=== PATIENT | male | born 2000 | race African-American/Black ===

== ENCOUNTER 2024-06-30 15:36 | Emergency (ER) | payer OTHER ==
--- NOTE | 2024-06-30 16:14 | RAD REPORT ---
EXAM: CT brain without contrast HISTORY: ams COMPARISON: None TECHNIQUE: Multiple contiguous axial images were obtained and a CT of the brain without contrast. Sag ittal and coronal reformats were performed. One or more of the following dose reduction techniques were used: Automated exposure control, adjust ment of the mA and/or kV according to patient size, and/or iterative reconstruction. FINDINGS: No evidence of hydrocephalus, intracranial hemorrhage, or extra-axial fluid collection. The brain is normal in morphology. No evidence of midline shift or areas of brain edema. The calvarium is intact. The visualized paranasal sinuses and mastoid air cells are essentially clear . IMPRESSION: No evidence of acute intracranial abnormality.
--- NOTE | 2024-06-30 16:15 | RAD REPORT ---
EXAMINATION: ONE VIEW CHEST XR CLINICAL INDICATION: confusion, hiv TECHNIQUE: Frontal chest projection is submitted. Examination is limited by patient positioning and t echnique. COMPARISON: No prior exam. FINDINGS: The lungs are well inflated and clear. The heart is normal in size. No displaced fractures identified . IMPRESSION: No acute intrathoracic abnormalities.
[2024-06-30 16:39] LABS: PTT, Activated Partial Thromb 31.5 SECONDS (24.3-36.9); Protime INR 1.24
[2024-06-30 16:44] LABS: Absolute Basophils 0.1 K/uL (0-0.5); Absolute Lymphocytes (CBC) 2.2 K/uL (0.7-4.9); Absolute Monocytes 0.7 K/uL (0.1-1.3); Absolute Neutrophil 6.3 K/uL (1.8-8.0); Basophils % 0.6 % (0-1.3); Eosinophils % 0.5 % (0-4.4); Hematocrit 42.1 % (39.6-49.0); Hemoglobin 14.1 g/dL (13.6-17.9); Lymphocytes % 23.4 % (15.3-44.8); MCH 28.4 pg (27.0-35.0); MCHC 33.5 g/dL (32.0-36.0); MCV 84.8 fL (80-100); MPV 9.4 fL (7.6-11.3); Monocytes % 8.1 % (3.3-12.3); Neutrophils % 67.4 % (41.7-73.7); Nucleated Red Blood Cells % 0.1 % (0-0); Platelets 173 thou/uL (152-406); RBC Red Blood Cell Count 4.96 M/uL (4.33-5.43); Red Cell Distribution Width 14.9 % (12.1-15.2)
[2024-06-30 16:48] LABS: Albumin 4.3 g/dL (3.4-5.0); Anion Gap 13.6 mEq/L (5.0-15.0); Bilirubin Total 0.8 mg/dL (0.2-1.0); Globulin 4.4 g/dL (2.3-3.5); Potassium 3.6 mEq/L (3.5-5.1); Protein, Total 8.7 g/dL (6.4-8.2)
[2024-06-30 19:02] LABS: Specific Gravity > 1.030 (1.005-1.030); Sqamous Epithelial None Seen /HPF (None Seen); Urine Bacteria <20 /HPF (<20); Urine Bilirubin NEGATIVE (Negative); Urine Blood Negative (Negative); Urine Clarity Clear (Clear); Urine Color Yellow (Yellow); Urine Crystals Unidentified Few /HPF (None Seen); Urine Culture Reflex Order NOT NEEDED; Urine Glucose NEGATIVE (Negative); Urine Ketones 4+ (Over) (Negative); Urine Microscopic Reflex YN ORDER UMIC; Urine Mucus 2+ /HPF (None Seen); Urine Nitrite NEGATIVE (Negative); Urine Protein 1+ (Negative); Urine RBC <5 /HPF (None Seen); Urine Urobilinogen 1+ (Normal); Urine WBC <5 /HPF (<5)
[2024-06-30 19:07] LABS: Barbiturates NEGATIVE (NEGATIVE); Benzodiazepines NEGATIVE (NEGATIVE); Cocaine NEGATIVE (NEGATIVE); METHAMPHETAM NEGATIVE (NEGATIVE); Methadone NEGATIVE (NEGATIVE); Opiates NEGATIVE (NEGATIVE); Phencyclidine NEGATIVE (NEGATIVE); THC Cannibis NEGATIVE (NEGATIVE)
--- NOTE | 2024-06-30 19:11 | ER ---
Nurse's Notes [facility] Name: Kael Bhatt Age: 24 yrs Sex: Male : 2000 Arrival Date: 06/30/2024 Time: 15:36 Bed 8 Private MD: Diagnosis: Altered mental status, resolved Presentation: 06/30 15:40 Chief complaint: EMS states: AMS AT [facility], NON-COMPLIANT WITH HIV MEDS. Coronavirus bp screen: At this time, the client does not indicate any symptoms associated with coronavirus-19. Ebola Screen: No symptoms or risks identified at this time. Initial Sepsis Screen: Does the patient meet any 2 criteria? No. Patient's initial sepsis screen is negative. Does the patient have a suspected source of infection? No. Patient's initial sepsis screen is negative. Risk Assessment: Do you want to hurt yourself or someone else? Patient reports no desire to harm self or others. Onset of symptoms is unknown. Care prior to arrival: None. 15:40 Method Of Arrival: EMS: [facility] bp 15:40 Acuity: LEROY 3 bp Triage Assessment: 15:44 General: Appears unkempt, Behavior is uncooperative. Pain: Unable to use pain scale. bp Does not appear to understand pain scale. EENT: No deficits noted. Neuro: Level of Consciousness is awake, confused, Oriented to none. Cardiovascular: Rhythm is sinus rhythm. Respiratory: No deficits noted. GI: No signs and/or symptoms were reported involving the gastrointestinal system. : No signs and/or symptoms were reported regarding the genitourinary system. Derm: No deficits noted. Musculoskeletal: No deficits noted. Historical: - Allergies: 15:44 Unable to obtain; bp - Immunization history:: Adult Immunizations up to date. - Infectious Disease History:: Denies. - Social history:: Smoking status: unknown. - Family history:: not pertinent. Screenin:[facility] ED Fall Risk Assessment (Adult) History of falling in the last 3 months, ld1 including since admission No falls in past 3 months (0 pts) Confusion or Disorientation No (0 pts) Intoxicated or Sedated No (0 pts) Impaired Gait No (0 pts) Mobility Assist Device Used No (0 pt) Altered Elimination No (0 pt) Score/Fall Risk Level 0 - 2 = Low Risk Oriented to surroundings, Hourly rounding (assess needs \T\ fall precautionary measures) done. Abuse screen: Denies threats or abuse. Denies injuries from another. Nutritional screening: No deficits noted. Tuberculosis screening: No symptoms or risk factors identified. Assessment: 18:51 General: Appears in no apparent distress. comfortable, Behavior is appropriate for age, ld1 fussy. Pain: Denies pain. Neuro: Level of Consciousness is awake, alert, obeys commands, Oriented to person, place, time, situation. Cardiovascular: Capillary refill < 3 seconds Patient's skin is warm and dry. Respiratory: Airway is patent Respiratory effort is even, unlabored. GI: Abdomen is flat, non-distended. : No signs and/or symptoms were reported regarding the genitourinary system. EENT: No signs and/or symptoms were reported regarding the EENT system. Derm: No signs and/or symptoms reported regarding the dermatologic system. Musculoskeletal: No signs and/or symptoms reported regarding the musculoskeletal system. 19:47 Reassessment: Patient appears in no apparent distress at this time. Patient and/or bm8 family updated on plan of care and expected duration. Pain level reassessed. Patient is alert, oriented x 3, equal unlabored respirations, skin warm/dry/pink. Patient denies pain at this time. Patient states feeling better. Patient states symptoms have improved. General: Appears in no apparent distress. comfortable, Behavior is calm, cooperative, appropriate for age. Pain: Denies pain. Neuro: No deficits noted. Level of Consciousness is awake, alert, obeys commands, Oriented to person, place, time, situation, Appropriate for age. Cardiovascular: Denies chest pain, lightheadedness, shortness of breath, Capillary refill < 3 seconds in bilateral fingers Patient's skin is warm and dry. Respiratory: Airway is patent Respiratory effort is even, unlabored, Respiratory pattern is regular, symmetrical. GI: No signs and/or symptoms were reported involving the gastrointestinal system. : No signs and/or symptoms were reported regarding the genitourinary system. EENT: No signs and/or symptoms were reported regarding the EENT system. Derm: No signs and/or symptoms reported regarding the dermatologic system. Musculoskeletal: No signs and/or symptoms reported regarding the musculoskeletal system. 19:49 Reassessment: pt awaiting transportation for departure back to [facility]. bm8 Vital Signs: 15:40 BP 144 / 100; Pulse 88; Resp 15; Temp 98; Pulse Ox 98% ; bp 17:00 BP 137 / 87; Pulse 91; Resp 15; Pulse Ox 100% ; bp 18:52 BP 144 / 91; Pulse 83; Resp 15; Pulse Ox 99% ; bp 19:47 BP 108 / 68; Pulse 76; Resp 16; Temp 99.4; Pulse Ox 98% ; Pain 0/10; bm8 19:47 Pain Scale: Adult bm8 [place] Coma Score: 19:47 Eye Response: spontaneous(4). Motor Response: obeys commands(6). Verbal Response: bm8 oriented(5). Total: 15. NIH Stroke Scale Scores: 15:44 NIHSS Score: 4 bp ED Course: 15:37 Patient arrived in ED. bp 15:38 Edinson Perez MD is Attending Physician. rt 15:44 Triage completed. bp 15:44 Arm band placed on. bp 15:47 Joce Ro, RN is Primary Nurse. bp 16:05 CT Head Brain wo Cont In Process Unspecified. EDMS 16:07 Chest Single View XRAY In Process Unspecified. EDMS 16:30 Initial lab(s) drawn, by me, sent to lab. Inserted saline lock: 22 gauge in right bp forearm, using aseptic technique. Blood collected. Flushed with 10 mL NS. 18:49 Urine collected: clean catch specimen, hussein colored. bp 18:51 Patient has correct armband on for positive identification. Placed in gown. Bed in low ld1 position. Call light in reach. Side rails up X2. Pulse ox on. NIBP on. Door closed. Noise minimized. Warm blanket given. 18:51 No provider procedures requiring assistance completed. ld1 19:11 4 called [facility] Managed Care for transfer talked to Lauren 1911 no beds at [facility]. sp 19:47 Provided Education on: post er care. bm8 19:47 IV discontinued, intact, bleeding controlled, No redness/swelling at site. Pressure bm8 dressing applied. Administered Medications: No medications were administered Medication: 18:51 VIS not applicable for this client. ld1 Outcome: 19:10 ER care complete, transfer ordered by MD. rt 19:34 Discharge ordered by MD. rt 19:47 Discharged to home ambulatory, with long-term guards bm8 19:47 Condition: stable 19:47 Discharge instructions given to patient, police, Instructed on discharge instructions, follow up and referral plans. Demonstrated understanding of instructions, follow-up care, 20:09 Patient left the ED. bm8 NIH Stroke Scale - NIH Stroke Score Date: 06/30/2024 Time: 15:44 Total Score = 4 10. Dysarthria (speech clarity - read or repeat words) - 0(Normal) 11. Extinction and Inattention (visual/tactile/auditory/spatial/personal) - 0(No abnormality) 1a. Level of Consciousness (LOC) - 0(Alert) 1b. Level of Consciousness (LOC) (Month \T\ Age) - 2(Neither) 1c. LOC Commands (Open \T\ Closes Eyes/Product Safety Technician) - 2(Neither) 2. Best Gaze (Lateral Gaze Paresis) - 0(Normal) 3. Visual Field Loss - 0(No visual loss) 4. Facial Palsy - 0(Normal) 5a. Left Arm: Motor (10-second hold) - 0(No drift) 5b. Right Arm: Motor (10-second hold) - 0(No drift) 6a. Left Leg: Motor (5-second hold - always test supine) - 0(No drift) 6b. Right Leg: Motor (5-second hold - always test supine) - 0(No drift) 7. Limb Ataxia (finger/nose \T\ heel/willams - test with eyes open) - 0(Absent) 8. Sensory Loss (pinprick arms/legs/face) - 0(Normal) 9. Best Language: Aphasia (description/naming/reading) - 0(No aphasia) Initials: bp Signatures: Dispatcher [employer] EDMS Cheyenne Fan Brian RN RN bp Kimberly Sage, RN RN ld1 Edinson Perez MD MD rt Alexis Espinoza, RN RN bm8 Corrections: (The following items were deleted from the chart) 15:44 15:44 Allergies: No Known Allergies; bp bp
--- NOTE | 2024-06-30 19:11 | EDPHYS ---
Physician Documentation [facility] Name: Kael Bhatt Age: 24 yrs Sex: Male : 2000 Arrival Date: 06/30/2024 Time: 15:36 Bed 8 Private MD: ED Physician Edinson Perez HPI: 06/30 16:23 This 24 yrs old Black Male presents to ER via EMS with complaints of Altered Mental rt Status. 16:23 Patient presents to the ED with altered mental status. The patient presents from rt alf, has a history of HIV, reportedly not compliant with his medications. No further history could be obtained due to altered mental status. Symptoms are moderate severity, no other aggravating or alleviating factors.. Historical: - Allergies: 15:44 Unable to obtain; bp - Immunization history:: Adult Immunizations up to date. - Infectious Disease History:: Denies. - Social history:: Smoking status: unknown. - Family history:: not pertinent. ROS: 16:23 Unable to obtain ROS due to altered mental status, rt Exam: 16:23 Head/Face: Normocephalic, atraumatic. Chest/axilla: Normal chest wall appearance and rt motion. Nontender with no deformity. No lesions are appreciated. Cardiovascular: Regular rate and rhythm with a normal S1 and S2. No gallops, murmurs, or rubs. Normal PMI, no JVD. No pulse deficits. Respiratory: Lungs have equal breath sounds bilaterally, clear to auscultation and percussion. No rales, rhonchi or wheezes noted. No increased work of breathing, no retractions or nasal flaring. Abdomen/GI: Soft, non-tender, with normal bowel sounds. No distension or tympany. No guarding or rebound. No evidence of tenderness throughout. Skin: Warm, dry with normal turgor. Normal color with no rashes, no lesions, and no evidence of cellulitis. MS/ Extremity: Pulses equal, no cyanosis. Neurovascular intact. Full, normal range of motion. 16:23 Constitutional: The patient appears Awake, confused 16:23 Neuro: Confused, responds inappropriately to questions, strength and sensation intact in upper and lower extremities, 16:32 ECG was reviewed by the Attending Physician. rt Vital Signs: 15:40 BP 144 / 100; Pulse 88; Resp 15; Temp 98; Pulse Ox 98% ; bp 17:00 BP 137 / 87; Pulse 91; Resp 15; Pulse Ox 100% ; bp 18:52 BP 144 / 91; Pulse 83; Resp 15; Pulse Ox 99% ; bp 19:47 BP 108 / 68; Pulse 76; Resp 16; Temp 99.4; Pulse Ox 98% ; Pain 0/10; bm8 19:47 Pain Scale: Adult bm8 NIH Stroke Scale Scores: 15:44 NIHSS Score: 4 bp [place] Coma Score: 19:47 Eye Response: spontaneous(4). Motor Response: obeys commands(6). Verbal Response: bm8 oriented(5). Total: 15. MDM: 15:38 Medical Screening Exam initiated rt 20:11 Differential Diagnosis: drug injestion, psychosis, infection, intracranial hemorrhage. rt Data reviewed: vital signs, nurses notes, lab test result(s), EKG, radiologic studies. Consideration of Admission/Observation Escalation of care including admission/observation considered. Patient had essentially negative workup. He is afebrile. The patient suddenly began to speak, states that he has no physical complaints, states that he wishes to go back to the [facility] and not be admitted to the hospital. At this time, I see no reasons for patient to be admitted, strict return precautions were discussed.. Independent interpretation of the following test(s) in the Emergency Department CT Scan: My interpretation is No intracranial hemorrhage seen on interpretation of CT scan images. Test considered but Not performed: Labs: Patient is afebrile, not lymphopenic, no significant lab abnormalities, I have a low suspicion for meningitis, encephalitis, do not believe that lumbar puncture is indicated.. Care significantly affected by the following chronic conditions: HIV. Counseling: I had a detailed discussion with the patient and/or guardian regarding the historical points, exam findings, and any diagnostic results supporting the discharge/admit diagnosis, lab results, radiology results, the need for outpatient follow up, to return to the emergency department if symptoms worsen or persist or if there are any questions or concerns that arise at home. Response to treatment: the patient's symptoms have markedly improved after treatment, the patient's symptoms have resolved after treatment. 06/30 15:43 Order name: Blood Culture Adult (2) rt 06/30 15:43 Order name: CBC with Diff; Complete Time: 17:21 rt 06/30 15:43 Order name: CMP; Complete Time: 17:21 rt 06/30 15:43 Order name: Lactate w/ 2H reflex if indic.; Complete Time: 17:21 rt 06/30 15:43 Order name: Protime (+inr); Complete Time: 17:21 rt 06/30 15:43 Order name: Ptt, Activated; Complete Time: 17:21 rt 06/30 15:43 Order name: Urinalysis w/ reflexes; Complete Time: 19:07 rt 06/30 18:45 Order name: UDS; Complete Time: 19:07 bp 06/30 15:43 Order name: Chest Single View XRAY; Complete Time: 16:16 rt 06/30 15:43 Order name: CT Head Brain wo Cont; Complete Time: 16:16 rt 06/30 15:43 Order name: Accucheck; Complete Time: 16:23 rt 06/30 15:43 Order name: Cardiac monitoring; Complete Time: 16:23 rt 06/30 15:43 Order name: EKG - Nurse/Tech; Complete Time: 16:27 rt 06/30 15:43 Order name: IV Saline Lock - Large Bore; Complete Time: 16:23 rt 06/30 15:43 Order name: Labs collected and sent; Complete Time: 16:23 rt 06/30 15:43 Order name: O2 Per Protocol; Complete Time: 15:47 rt 06/30 15:43 Order name: O2 Sat Monitoring; Complete Time: 15:47 rt 06/30 15:43 Order name: Vital Signs; Complete Time: 15:47 rt EC:32 Rate is 76 beats/min. Rhythm is regular, Normal Sinus Rhythm with No ectopy. Right axis rt deviation noted. MA interval is normal. QRS interval is normal. QT interval is normal. No Q waves. T waves are Normal. No ST changes noted. Interpreted by me. Administered Medications: No medications were administered Disposition Summary: 06/30/24 19:34 Discharge Ordered Notes: Location: Law Enforcement rt Problem: new(06/30/24 19:34) rt Symptoms: have improved(06/30/24 19:34) rt Condition: Stable(06/30/24 19:34) rt Diagnosis - Altered mental status, resolved rt Followup: rt - With: Private Physician - When: 1 - 2 days - Reason: Discharge Instructions: - Discharge Summary Sheet rt - Confusion rt Forms: - Medication Reconciliation Form rt - Antibiotic Education rt - Prescription Opioid Use rt - Patient Portal Instructions rt - Leadership Thank You Letter rt NIH Stroke Scale - NIH Stroke Score Date: 06/30/2024 Time: 15:44 Total Score = 4 10. Dysarthria (speech clarity - read or repeat words) - 0(Normal) 11. Extinction and Inattention (visual/tactile/auditory/spatial/personal) - 0(No abnormality) 1a. Level of Consciousness (LOC) - 0(Alert) 1b. Level of Consciousness (LOC) (Month \T\ Age) - 2(Neither) 1c. LOC Commands (Open \T\ Closes Eyes/Network Systems Consultant) - 2(Neither) 2. Best Gaze (Lateral Gaze Paresis) - 0(Normal) 3. Visual Field Loss - 0(No visual loss) 4. Facial Palsy - 0(Normal) 5a. Left Arm: Motor (10-second hold) - 0(No drift) 5b. Right Arm: Motor (10-second hold) - 0(No drift) 6a. Left Leg: Motor (5-second hold - always test supine) - 0(No drift) 6b. Right Leg: Motor (5-second hold - always test supine) - 0(No drift) 7. Limb Ataxia (finger/nose \T\ heel/willams - test with eyes open) - 0(Absent) 8. Sensory Loss (pinprick arms/legs/face) - 0(Normal) 9. Best Language: Aphasia (description/naming/reading) - 0(No aphasia) Initials: bp Signatures: Dispatcher [employer] EDJoce Santoyo RN RN bp Edinson Perez MD MD rt Corrections: (The following items were deleted from the chart) 15:43 15:43 BLOOD CULTURE*+BA.LAB.BRZ ordered. EDMS EDMS 15:43 15:43 CBC+H.LAB.BRZ ordered. EDMS EDMS 15:43 15:43 COMPREHENSIVE METABOLIC PANEL+C.LAB.BRZ ordered. EDMS EDMS 15:43 15:43 LACTATE+C.LAB.BRZ ordered. EDMS EDMS 15:43 15:43 PROTIME (+INR)+COAG.LAB.BRZ ordered. EDMS EDMS 15:43 15:43 PTT, ACTIVATED+COAG.LAB.BRZ ordered. EDMS EDMS 15:43 15:43 Urinalysis+U.LAB.BRZ ordered. EDMS EDMS 15:43 15:43 Chest Single View+RAD.RAD.BRZ ordered. EDMS EDMS 15:43 15:43 Head Brain Wo Cont+CT.RAD.BRZ ordered. EDMS EDMS 15:44 15:44 Allergies: No Known Allergies; bp bp 19:33 19:10 Dr. rt rt : 19:10 [facility] rt rt : 19:10 Higher level of care rt rt : 19:10 Stable rt rt 19: 19:10 new rt rt : 19:10 are unchanged rt rt : 19:10 Altered mental status, unspecified rt rt
[2024-06-30 20:18] VITALS: BP 108/68; TEMP 99.4; O2SAT 98
--- NOTE | 2024-07-01 16:46 | EKG ---
Test Date: 2024-06-30 Test Time: 16:28:01 Abrasive Grader Helper: Baldo CASTRO MEASUREMENT RESULTS: Intervals: Rate: 76 IN: 124 QRSD: 80 QT: 382 QTc: 429 Mylo: P: 77 IN: 124 QRS: 90 T: 14 INTERPRETIVE STATEMENTS: Normal sinus rhythm Rightward axis Borderline ECG No previous ECG available for comparison Electronically Signed On 07-01-24 16:43:40 LICENSED REACTOR OPERATOR by Wyatt Love
== END 2024-06-30 20:09 ==
LOC: ER 15:36
DX: R41.82 Altered mental status, unspecified (principal); R29.704 NIHSS score 4; Z21 Asymptomatic human immunodeficiency virus [HIV] infection status
CPT/HCPCS: 36415; 70450; 71045; 80053; 80307; 81001; 83605; 85025; 85610; 85730; 87040; 93005; 99284